=== PATIENT | male | born 1990 | race American Indian/Alaskan Native ===

== ENCOUNTER 2017-10-17 23:30 | Emergency (ER) | payer SELFPAY ==
[2017-10-18 01:00] LABS: Bilirubin,Urine NEG (Negative); Blood,Urine NEG (Negative); Color,Urine Yellow (Yellow); Mucus,Urine FEW /HPF; Protein,Urine <15 mg/dL mg/dL (Negative)
[2017-10-18 01:01] VITALS: BP 122/73
[2017-10-18 01:07] LABS: WBC,Urine > 182.0 /HPF (0.0-6.0)
--- NOTE | 2017-10-18 01:23 | Emergency Department Report ---
Chief Complaint: Urogenital-Male Stated Complaint: PENILE DISCHARGE Time Seen by Provider: 10/18/17 01:23 - HPI History of Present Illness: Patient is a 3-year-old male presents to the ED complaining of penile discharge and wants an STD check check. He denies any testicular swelling pain lesions dysuria, fever, nausea vomiting or abdominal pain - ROS Review of Systems: As noted in HPI - Exam Vital Signs: Vital Signs 10/18/17 00:55 Temperature 98.9 F Pulse Rate 81 Respiratory 18 Rate Blood Pressure 122/73 [Left] O2 Sat by Pulse 99 Oximetry Physical Exam: GENERAL: Alert and oriented x3, no apparent distress, Normal Gait, atraumatic. HEAD: Head is normocephalic and a-traumatic. SKIN: Warm and dry, No lesions, No ulceration or induration present. MSE screening note: Focused history and physical exam performed. Due to findings the following was ordered: ED Medical Decision Making - Medical Decision Making 27-year-old male presents for STD check I discussed with the patient and this is is nonmedical emergency and would have to speak to registration about a fee Patient unable to pay fee, so he was screened out I discussed the patient and gave him [facility] referral She is stable he is in no acute or respiratory distress he sitting comfortably in the ED room. Referrals given ED Disposition for MSE Clinical Impression: Screening for STDs (sexually transmitted diseases) Disposition: -01 TO HOME OR SELFCARE Is pt being admited?: No Does the pt Need Aspirin: No Condition: Stable Referrals: BRAD LABOY MD [Primary Care Provider] - 3-5 Days [facility] [Outside] - 3-5 Days
== END 2017-10-18 01:30 | disposition left against medical advice (07) ==
LOC: ED 23:30
DX: Z11.3 Encounter for screening for infections with a predominantly sexual mode of transmission (principal); R36.9 Urethral discharge, unspecified
CPT/HCPCS: 81001; 99283